=== PATIENT | female | born 1950 | race Caucasian/White ===

== ENCOUNTER → 2021-02-18 | Day surgery (SDC) | payer BC, MEDICARE, OTHER ==
[~2021-02-18] MED LIST: BUPIVACAINE MPF 0.25% 10 ML VIAL. ONE; LIDOCAINE 1% PF 30 ML VIAL. ONE; LOSA25TA PO; methylPREDNISolone ACETATE 40 MG/ML VIAL. ONE; tramadol PO
[2021-02-18 14:18] VITALS: BP 155/72
== END | disposition home or self-care (01) ==
LOC: SURG 13:03
PROVIDERS: ATTEND Anesthesiology
DX: M79.18 Myalgia, other site (principal); M54.59 Other low back pain; M19.90 Unspecified osteoarthritis, unspecified site; Z98.890 Other specified postprocedural states; Z79.899 Other long term (current) drug therapy; Z86.73 Personal history of transient ischemic attack (TIA), and cerebral infarction without residual deficits; Z87.81 Personal history of (healed) traumatic fracture; Z90.49 Acquired absence of other specified parts of digestive tract
CPT/HCPCS: 20553; J1030; J3490; A4209; A4657; A4930

== ENCOUNTER → 2021-05-06 | Day surgery (SDC) | payer MEDICARE ==
[~2021-05-06] MED LIST changes: +ASPI-630 PO; +CLOP75TA57 PO; +DEXAMETHASONE SOD PHOS 10 MG/ML VIAL. ONE; +IOHEXOL 300 MG/ML 50 ML VIAL. ONE; -methylPREDNISolone ACETATE 40 MG/ML VIAL. ONE
[2021-05-06 13:57] VITALS: BP 148/95
== END | disposition home or self-care (01) ==
LOC: SURG 13:18
PROVIDERS: ATTEND Anesthesiology
DX: M54.16 Radiculopathy, lumbar region (principal); M47.814 Spondylosis without myelopathy or radiculopathy, thoracic region; I10 Essential (primary) hypertension; M79.18 Myalgia, other site; Z98.890 Other specified postprocedural states; M19.90 Unspecified osteoarthritis, unspecified site; Z90.49 Acquired absence of other specified parts of digestive tract; Z87.81 Personal history of (healed) traumatic fracture; Z86.73 Personal history of transient ischemic attack (TIA), and cerebral infarction without residual deficits; Z79.899 Other long term (current) drug therapy
CPT/HCPCS: 64483; A4209; A4657; A4930; J1100; J3490; Q9967